=== PATIENT | male | born 1940 | race Caucasian/White ===

== ENCOUNTER 2018-05-20 11:28 | Day surgery (SDC) | payer MEDICARE, OTHER ==
[~2018-05-20] VITALS: Ht 167.6 cm; Wt 72.6 kg
[~2018-05-20 11:28] MED LIST: DIOVAN HC1 PO; METOPROLOL50 M1 PO; TAMSULOSIN0.4 MG PO; TESTOSTERON200 MG/ML IM
[2018-05-20 13:40] VITALS: BP 176/74
== END 2018-05-20 13:51 | disposition home or self-care (01) ==
LOC: ENDO 11:28
PROVIDERS: ATTEND Internal Medicine Gastroenterology
PROC: 0DJD8ZZ Inspection of Lower Intestinal Tract, Via Natural or Artificial Opening Endoscopic (ICD-10-PCS; principal; 2018-05-20)
DX: K59.00 Constipation, unspecified (principal); K64.4 Residual hemorrhoidal skin tags; K64.8 Other hemorrhoids; I10 Essential (primary) hypertension; Z86.010 Personal history of colon polyps

== ENCOUNTER 2018-08-16 15:17 | Emergency (ER) | payer MEDICARE, OTHER ==
[~2018-08-16] VITALS: Ht 167.6 cm; Wt 75.0 kg
[2018-08-16 15:23] VITALS: BP 163/77
== END 2018-08-16 15:27 | disposition left against medical advice (07) ==
LOC: ED 15:17 → LWOBS 15:26
DX: Z91.19 Patient's noncompliance with other medical treatment and regimen (principal)